=== PATIENT | male | born 2000 | race Caucasian/White ===

== ENCOUNTER → 2020-07-23 | Outpatient (CLI) | payer OTHER ==
--- NOTE | 2020-07-24 11:31 | ECHO ---
DATE OF PROCEDURE: 07/23/2020 Outpatient study. Age: 20 Gender: Male Height: 175 cm Weight: 66 kg REFERRING PHYSICIAN: Dr. Dominic Rahman INDICATION: Heart murmur. MEASUREMENTS: IVS 0.9 LV 4.3 LVPW 1.1 LA 2.9 Aorta 2.6 Mitral E wave velocity 78 A wave velocity 46 E prime septal 13.9 E prime lateral 14.9 FINDINGS: The study is of good technical quality. The patient is in sinus rhythm. Normal LV size and systolic function, estimated left ventricular ejection fraction (LVEF) 60 to 65%. Right ventricle is also normal size and systolic function. Both atria appear normal. All four cardiac valves are reasonably well seen and appear normal. No pericardial effusion is noted. Inferior vena cava is normal size. Aortic root, aortic arch, and visualized segment of abdominal aorta all appear normal. Doppler interrogation reveals competent aortic santhosh without stenosis or insufficiency. There is trace mitral and trace tricuspid insufficiency. Calculated pulmonary artery pressure is in high 20s and low 30s corresponding to borderline elevated readings. Trace pulmonic insufficiency is also noted. Mitral inflow pattern and tissue Doppler imaging of mitral annulus revealed normal diastolic dysfunction of left ventricle. CONCLUSIONS: 1. Study is of good technical quality, the patient is in sinus rhythm. 2. Normal LV size and systolic function, normal diastolic dysfunction. 3. No significant valvular disease. 4. Normal central venous pressure and estimated pulmonary artery pressure on upper limits of normal values or mildly elevated. MTDD
== END ==
LOC: M CARPUL 08:14
PROVIDERS: ATTEND Emergency Medicine
DX: R01.1 Cardiac murmur, unspecified (principal)